=== PATIENT | male | born 1965 | race Asian ===

== ENCOUNTER 2019-03-14 07:59 | Emergency (ER) | payer OTHER ==
[~2019-03-14] VITALS: Ht 180.3 cm; Wt 77.1 kg
[2019-03-14 08:10] VITALS: BP 151/96
--- NOTE | 2019-03-14 08:10 | NUR ---
ED Nurse Note: Patient walked in to ER from home as stating "I have high blood pressure." per pt, he checked at home with wrist side checking bp machine and systolic was over 160. pt aao x4 and ambulatory. skin clean and intact. calm and cooperative. no acute distress noted at this time.
--- NOTE | 2019-03-14 08:17 | NUR ---
ED Nurse Note: pt provided urine sample. pt ambulated to bathroom with steady gait.
--- NOTE | 2019-03-14 08:33 | Emergency Room Report ---
History of Present Illness General Chief Complaint: Hypertension Source: Patient Present Illness HPI 53-year-old male presents with high blood pressure measuring 150s-160s, was concerned that his blood pressure was too high he denies any chest pain shortness of breath, no headaches, no visual changes, severity was mild, no aggravating or alleviating factors, patient was worried, he states he has been unable to see his primary care doctor. Allergies: Coded Allergies: No Known Allergies (Unverified , 03/14/19) Patient History Past Medical History: see triage record Reviewed Nursing Documentation: PMH: Agreed; PSxH: Agreed Nursing Documentation-PMH Past Medical History: No Stated History Review of Systems All Other Systems: negative except mentioned in HPI Physical Exam Vital Signs Date Time Temp Pulse Resp B/P (MAP) Pulse Ox O2 Delivery O2 Flow Rate FiO2 03/14/19 08:03 98.1 83 17 151/96 (114) 100 Room Air Sp02 EP Interpretation: reviewed, normal General Appearance: well appearing, no apparent distress, alert Head: normocephalic, atraumatic Eyes: bilateral eye PERRL, bilateral eye EOMI ENT: uvula midline, moist mucus membranes Neck: supple, thyroid normal, supple/symm/no masses Respiratory: lungs clear, no respiratory distress, no retraction, no accessory muscle use Cardiovascular #1: normal peripheral pulses, regular rate, rhythm, no edema, no gallop, no murmur Gastrointestinal: non tender, soft, no guarding, no rebound Musculoskeletal: normal inspection Neurologic: alert, oriented x3 Psychiatric: mood/affect normal Skin: no rash, warm/dry Medical Decision Making Diagnostic Impression: Primary Impression: Hypertension Qualified Codes: I10 - Essential (primary) hypertension ER Course Patient with asymptomatic hypertension, joint decision-making was made with the patient to pursue outpatient care to follow-up with a primary care doctor and not to start antihypertensive medication, patient states he will try lifestyle modifications first. Return precautions discussed follow-up with PCP Last Vital Signs Date Time Temp Pulse Resp B/P (MAP) Pulse Ox O2 Delivery O2 Flow Rate FiO2 03/14/19 08:10 83 17 Room Air 03/14/19 08:10 98.1 151/96 100 Disposition: HOME, SELF-CARE Condition: Stable Referrals: [facility] Patient Instructions: Hypertension, [id number] Additional Instructions: The patient was provided with discharge instructions, notified to follow-up with a primary care doctor and or specialist in the next 24-48 hours, and to return to the ED if they have worsening of their symptoms. Please note that this report is being documented using [employer] technology. This can lead to erroneous entry secondary to incorrect interpretation by the dictating instrument. Joon Carlos MD Mar 14, 2019 08:33
[2019-03-14 08:40] VITALS: BP 133/82
--- NOTE | 2019-03-14 08:41 | NUR ---
ER DISCHARGE NOTE: Patient is cleared to be discharged per ERMD, pt is aox4, on room air, with stable vital signs. pt was given dc instructions, pt was able to verbalize understanding, pt id band removed. pt is able to ambulate with steady gait. pt took all belongings.
== END 2019-03-14 08:40 | disposition home or self-care (01) ==
LOC: EMR 08:31
DX: I10 Essential (primary) hypertension (principal)
CPT/HCPCS: 99281